=== PATIENT | male | born 1960 | race Caucasian/White ===

== ENCOUNTER 2018-11-27 10:55 | Inpatient (IN) ==
[2018-11-27] MEDS ORDERED: ASPIRIN PO STA (15:51)
[2018-11-27 16:44] LABS: HEMATOCRIT 41.5 % (42.0-52.0); HEMOGLOBIN 14.4 g/dL (14.0-18.0); MCH 32.4 PG (27-31); MCHC 34.7 g/dL (33-37); MCV 93.3 FL (81-99); MPV 10.4 FL (7.4-10.4); RBC 4.45 XMIL (4.7-6.1); WBC 6.53 X1000 (4.8-10.8)
[2018-11-27 16:56] LABS: AGAP 11; BUN 22 mg/dL (8-22); CALCIUM 9.8 mg/dL (8.8-10.2); CHLORIDE 98 mmol/L (98-107); COSMO 280; CREATININE 1.1 mg/dL (0.7-1.2); ESTIMATED GFR > 60; GLUCOSE 111 mg/dL (70-104); POTASSIUM 4.3 mmol/L (3.5-5.1); SODIUM 138 mmol/L (136-145); TCO2 29 mmol/L (25-35)
--- NOTE | 2018-11-27 20:01 | Diag Imaging Result Doc PS360 ---
EXAM: CT ANGIOGRAM AORTA W/RUNOFF INDICATION: RIght Ischemic LEG TECHNIQUE: This exam was performed using automated exposure control, adjustment of mA or kV according to patient size, and/or use of iterative reconstruction technique. Thin section axial images and 3-D MIPS were obtained. COMPARISON: None. FINDINGS: There is extensive aortoiliac atherosclerotic disease. There is no evidence of abdominal aortic aneurysm. There is a right common iliac artery stent that is occluded. Flow is reconstituted after the right iliac artery bifurcation. There is extensive atherosclerotic disease involving the external and internal iliac arteries. There is moderate stenosis throughout the course of the external iliac artery on the right. There is severe focal stenosis involving the left common iliac artery but it remains patent. There is severe atherosclerotic disease involving the internal and external iliac arteries on the left. There is intermittent moderate stenosis involving the external iliac artery on the left. There is fairly severe stenosis involving the celiac trunk that is best appreciated on sagittal reformats. It remains patent, however. There is mild atherosclerotic disease involving the SMA. It remains patent. There is mild atherosclerotic disease at the origins of the renal arteries. There is mild YADIRA atherosclerotic disease. It remains patent. Review of the ancillary structures of the abdomen and pelvis reveals no acute pathology. Right: There is extensive common femoral artery atherosclerotic disease with intermittent moderate to severe stenosis. There is severe atherosclerotic disease involving the superficial femoral artery with intermittent moderate and severe stenosis. There is moderate intermittent popliteal artery stenosis. There is patchy atherosclerotic disease involving the proximal anterior tibial artery but it remains patent. At the ankle, the anterior tibial artery becomes occluded. The posterior tibial artery remains patent throughout its course and provides runoff to the foot. The peroneal artery becomes occluded at the ankle. Left: There is extensive common femoral artery and superficial femoral artery atherosclerotic disease with intermittent moderate to severe stenosis. Some of the popliteal artery is obscured by metallic artifact from left knee arthroplasty. There is moderate stenosis involving the visualized portion. It does remain patent. There is patchy atherosclerotic disease involving the proximal anterior tibial artery. It remains patent and provides runoff to the foot. There is mild atherosclerotic disease at the origin of the posterior tibial artery. It remains patent and provides runoff to the foot. There is patchy atherosclerotic disease involving the proximal and mid peroneal artery. It is very diminutive distally and cannot be identified below the ankle. IMPRESSION: Extensive aortoiliac atherosclerotic disease and atherosclerotic disease involving both lower extremities that is worst on the right with one vessel runoff to the right foot and two-vessel runoff to the left foot. Electronically signed by Beto Lacy 11/27/2018 7:58 PM
[2018-11-27] MEDS: NEURONTIN PO SCH (20:19)
[2018-11-27] MEDS ORDERED: LIPITOR PO SCH (21:00)
[2018-11-27] MEDS: ULTRAM PO SCH ×3 (22:08→23:29)
--- NOTE | 2018-11-27 23:12 | HISTORY AND PHYSICAL ---
CHIEF COMPLAINT: Claudication symptoms, right leg worse than the left side, for the last few days. HISTORY OF PRESENT ILLNESS: He is a 58-year-old white gentleman with known history of atherosclerotic vascular disease, was seen in the emergency room 2 days ago with above symptoms. Patient was diagnosed right sciatica pain, sent home. He came to my office and the symptoms are consistent with claudication symptoms and decreased pulses. The patient had outpatient arterial flow studies, BRITTANY 0.5 on the right side, 0.6 on the left side. He has significant monophasic flow, poor downstream, very poor runoff. Very suspicious with inflow disease, mostly aortic PA disease. The pain is very symptomatic even to minimal walking. I do not see any change in the color of the feet. Basically, admitted to the hospital for ischemic leg on the right side, treatment, and followed by aorto runoff with CT. He was admitted for observation. PAST MEDICAL HISTORY: Coronary artery disease, type 2 diabetes, hypertension, gout, sleep apnea, hyperlipidemia. PAST SURGICAL HISTORY: Implantable AICD, bypass surgery with 4 stents, and he has a stent in the legs on the right side, heart valve replacement, quadruple bypass surgery, bilateral hip replacement, left knee replacement. MEDICATIONS: Allopurinol 100 mg daily, aspirin 325 daily, Lipitor 40 daily, baclofen 10 mg daily, Pletal 50 p.o. b.i.d., Cymbalta 60 daily, isosorbide 30 mg daily, metformin 500 daily, Zantac 150 daily, tramadol 50 as needed. ALLERGIES: Reported to tetanus. SOCIAL HISTORY: He is since 2000. Smoking 1 pack a day. No drug abuse. Living in [place]. He has been disabled. FAMILY HISTORY: Father of heart attack 42. Mother 79 years old, . HEALTH MAINTENANCE: In 02/2018 flu vaccine. Prevnar vaccine 2018. Pneumovax 23 in 2012. Last physical exam 02/2008. Colonoscopy 02/[address]. REVIEW OF SYSTEMS: HEENT: No headache. No vision problem. No earache. No sore throat. Neck: No goiter. No lymphadenopathy. No bruit. Cardiopulmonary: No chest pain, shortness of breath, PND, orthopnea. Gastrointestinal: No nausea, vomiting, abdominal pain. Genitourinary: No history of hesitancy, frequency, dysuria. Claudication symptoms in the right leg. Neurologic: No neurological symptoms or weakness. PREVIOUS WORKUP: Left heart catheterization was done by Dr. Anastacio Jha, mild rigidity, reduced LV systolic function with inferior wall dyskinesia, severe three-vessel coronary atherosclerosis, patent PENA graft to the LAD, occluded saphenous vein graft, and occluded saphenous vein to diagonal branch. INVESTIGATIONS: CBC: White cell count 6.5, hematocrit 41, platelets 226,000. SMA 7: Sodium 138, potassium 4.3, chloride 98, BUN 22, creatinine 1.1. Glucose 111. PHYSICAL EXAMINATION: VITAL SIGNS: Temperature is 98 degrees, pulse 72, blood pressure 132/60. 5 feet 9 inches, weight 241 pounds. HEENT: Atraumatic, normocephalic. Pupils equal, reactive to light. NECK: Supple. CHEST: Clear. HEART: Sounds are regular. ABDOMEN: Belly soft, nontender. RECTAL: Deferred. EXTREMITIES: Right foot decreased pulses. No signs of gangrene. No obvious deficits. IMAGING: CT runoff, findings are right common iliac artery stent that is occluded, poor downstream's. ASSESSMENT AND PLAN: 1. A 58-year-old white male with a known history of peripheral vascular disease, occluded right common iliac artery stent with a poor downstream, symptomatic on the right side. Plan is aspirin, Pletal. Vascular consult with Dr. Schneider. 2. Hyperlipidemia, on Lipitor. 3. Chronic pain, on Neurontin. 4. Coronary artery disease status post bypass surgery, multiple grafts were occluded. Continue on aspirin and isosorbide. 5. Chronic pain, on tramadol. Will discuss with Dr. Schneider in the morning. cc: Diallo Corcoran MD
[2018-11-27] MEDS: PLETAL PO SCH (23:29)
[2018-11-27] MEDS: ZANTAC PO SCH (23:30)
[2018-11-28] MEDS: NEURONTIN PO SCH ×3 (03:52→18:21)
[2018-11-28] MEDS: CYMBALTA PO SCH (09:56)
[2018-11-28] MEDS: PLETAL PO SCH ×2 (09:56→23:36)
[2018-11-28] MEDS: IMDUR PO SCH (09:56)
[2018-11-28] MEDS: ZANTAC PO SCH ×2 (09:56→23:36)
[2018-11-28] MEDS: ASPIRIN PO SCH (09:56)
[2018-11-28] MEDS: ZYLOPRIM PO SCH (09:56)
[2018-11-28] MEDS: ULTRAM PO SCH ×4 (09:57→23:35)
[2018-11-28] MEDS: PRINIVIL PO SCH (09:57)
--- NOTE | 2018-11-28 12:56 | EKG Report ---
Test Performed on : 11/28/2018 12:45:04 PM Test Reason : pre-op eval, CAD Blood Pressure : / mmHG Vent. Rate : 078 BPM Atrial Rate : 078 BPM P-R Int : 180 ms QRS Dur : 118 ms QT Int : 402 ms P-R-T Axes : 072 095 -45 degrees QTc Int : 458 ms Normal sinus rhythm. Possible Left atrial enlargement Rightward axis Possible Inferior infarct (cited on or before 02-DEC-2016) Cannot rule out Anterior infarct , age undetermined Abnormal ECG When compared with ECG of 02-DEC-2016 07:04, premature ventricular complexes. are no longer present Non-specific change in ST segment in Inferior leads T wave inversion more evident in Inferior leads Confirmed by Abad PRESSLEY, MJosé Miguel Mendes ([id number]) on 12/02/2018 9:30:20 PM
--- NOTE | 2018-11-28 13:17 | Diag Imaging Result Doc PS360 ---
EXAM: CHEST-PORTABLE 11/28/2018 HISTORY: pre-op eval TECHNIQUE: AP portable upright at 1304 COMMENT: There is no evidence of acute cardiac or pulmonary disease. There are no previous studies. IMPRESSION: No evidence of acute disease. Electronically signed by Ranjit Lo 11/28/2018 1:14 PM
--- NOTE | 2018-11-28 13:33 | GENERAL SURGERY CONSULTATION ---
DATE: 11/28/2018 CHIEF COMPLAINT: Right leg pain when walking. HISTORY: This is a 58-year-old smoker who has had a previous right iliac stent in [place] a few years ago. He reports over the past 2 weeks he developed increasing pain in the right leg. He was admitted by Dr. Corcoran yesterday. CT angiogram reveals right iliac occlusion, significant left iliac disease as well. He reportedly has a right AB index 0.5 on the right and left AB index of 0.6. PAST MEDICAL HISTORY: He has a history of coronary artery disease, and has had bypass surgery in the past in [place]. He is followed by Dr. Jha here. He also has type 2 diabetes, hypertension, sleep apnea, hyperlipidemia and gout. PAST SURGICAL HISTORY: Previous surgery includes coronary bypass, AICD placement, bilateral hip replacement and left knee replacement. MEDICATIONS: His medications at home include allopurinol, aspirin, Lipitor, baclofen, Pletal, Cymbalta, isosorbide dinitrate, metformin, Zantac and tramadol as needed. ALLERGY: Tetanus. FAMILY HISTORY: Pertinent for ischemic heart disease. SOCIAL HISTORY: He is . Smokes a pack a day. Denies drug use. He is currently disabled due to his medical problems. REVIEW OF SYSTEMS: It is as noted above. He denies any chest pain or shortness of breath. All of the subsystems are negative. PHYSICAL EXAMINATION: Vital Signs: He is afebrile. Heart rate 60, blood pressure 126/57. HEENT: No carotid bruits are heard. Trachea is midline. Lungs: Bilateral breath sounds are present. Heart: Regular rate and rhythm. Abdomen: Soft and nontender. Chest: He does have a palpable pacemaker in the left upper anterior chest. Extremities: He has a faint left femoral pulse. No palpable right femoral pulse. I cannot palpate pedal pulses. He has evidence of a right greater saphenous vein harvest. There is no peripheral edema. Neuro: He is awake and alert. LABORATORY DATA: Hemoglobin 14.4 hematocrit 41.5 BUN 22, creatinine 1.1. ASSESSMENT: Bilateral claudication worse on the right. He has a right iliac occlusion, significant left iliac disease. I think he would be improved with a left iliac intervention, possible stent and femoral-femoral bypass. I have discussed this with him, the benefits and risks. If he is cleared by cardiology then we can proceed while hospitalized. cc: MD Diallo Chong MD
--- NOTE | 2018-11-28 14:22 | CARDIOLOGY CONSULTATION ---
DATE: 11/28/2018 CHIEF COMPLAINT: Patient with claudication type symptoms, apparent abnormal ABIs at PCP's office. HISTORY OF PRESENT ILLNESS: Mr. Rios is a 58-year-old, white gentleman with a history of coronary artery disease and peripheral artery disease who apparently had an ER visit for right hip pain and was sent home. He subsequently presented to his PCP's office and had a 0.5 BRITTANY on the right and 0.6 on the left. He was admitted for further evaluation. The patient seems to not have any chest pain. He had a PCI done 2 years ago. He is not aware of any recent changes in his chest pain but it does not sound like he participates in 4 METS of activity at this time. His. PAST MEDICAL HISTORY: Significant for: 1. Coronary artery disease with last cardiac catheterization performed in November of 2016. At that time, the patient's EF was 40% with dyskinesis of the basal to mid inferior wall. The left main was free of significant disease. The left anterior descending had 60-70% stenosis near its ostium and was occluded after the origin of a septal college intern in the first diagonal. The circumflex was occluded proximally. The first obtuse marginal had a 50% stenosis proximally. The right coronary artery was occluded proximally. The YADIRA to the LAD was widely patent and inserts into the mid vessel of the LAD. The LAD sends collaterals via a right ventricular branch to the right coronary artery. Vein graft to a marginal was chronically occluded. Vein graft to a diagonal is occluded. This was done to evaluate a nuclear scan performed in October of 2016 demonstrating severe fixed defects in the basal to mid inferolateral wall with moderate reversibility in the apical anterior wall and mild reversibility in the apical lateral wall. EF on that study was 39%. 2. Hypertension. 3. Hyperlipidemia. 4. Diabetes. 5. Peripheral vascular disease with previous stents. 6. Sleep apnea. SOCIAL HISTORY: He is . Smokes 1 pack a day. Lives in [place]. FAMILY HISTORY: Father of a heart attack at 42. REVIEW OF SYSTEMS: A 10 system review of systems is negative except for those things mentioned in the HPI. PHYSICAL EXAMINATION: Afebrile. Heart rate 63, blood pressure 138/53. General: He is in no acute distress. HEENT: Oropharynx is moist. Poor dentition. Eye examination shows pink conjunctivae and white sclerae. Neck: Examination shows no obvious thyromegaly or thyroid tenderness. Cardiovascular: He sounds to be in a regular rate and rhythm. I do not hear any obvious murmurs. He has no S3. He has no lower extremity edema. Chest: Examination is clear bilaterally. He has no increased work of breathing. Abdomen: Soft, nontender, nondistended. He has no obvious organomegaly. Skin: Examination is warm and dry throughout without any rashes. Neurological: He is moving all extremities well. He has no lateralizing deficits. PERTINENT DATA: He had an EKG performed, demonstrating sinus rhythm. He has an incomplete, nonspecific intraventricular conduction delay with T-wave inversions noted somewhat diffusely, inferior Q-waves. His aorta with runoff CTA was reviewed. Lab data shows a white count of 6.5, hematocrit 41, platelet count is 226,000. His sodium is 138, potassium is 4.3, BUN 22, creatinine is 1.1. His proBNP was 51. ASSESSMENT: Mr. Rios is a 58-year-old gentleman with severe peripheral vascular disease who was potentially undergoing vascular surgery on Monday. PLAN: He has a high perioperative cardiac risk secondary to his history of bypass, congestive heart failure, and high risk vascular surgery. We will proceed with myocardial perfusion imaging if he has not had any evaluations done in the last couple of years and he is minimally active, and continues to smoke. We will try to initiate him on a low dose of beta-tanna in the form of Coreg 3.125 b.i.d. I have escalated his atorvastatin to 80 mg at bedtime. We will check lipids in the morning. cc: MD Diallo Brenner MD
--- NOTE | 2018-11-28 21:06 | PROGRESS NOTE ---
DATE: 11/28/2018 SUBJECTIVE: I did review the CT runoff with the radiologist, spoke to Dr. Schneider and he has significant iliac stent occluded with poor downstream on the right side. Left main is also diseased. He continues to smoke. REVIEW OF SYSTEMS: None reported on exam. OBJECTIVE: Temperature is 98 degrees. Vitals are stable.HEENT: Within normal limits. Neck: Supple. Chest: Clear to auscultation. Heart: Sounds are regular. Abdomen: Belly is soft, nontender. Neurologic: No neurological deficits. INVESTIGATIONS: CBC SMA 7, cardiac enzymes, proBNP were normal. Chest x-ray reported AICD. No evidence of acute disease. ASSESSMENT AND PLAN: Peripheral arterial disease, symptomatic on the right side and Dr. Schneider is planning to open up on the left side and then followed by a femoral-femoral bypass graft and he wants the preoperative evaluation by distance education director. I spoke to Dr. Layton for clearance and Dr. Layton is going to do a stress test and lipid panel in the morning. Chest x-ray was stable. In the meantime, continue on aspirin, high dose of Lipitor, Coreg, and Pletal and Imdur. Reconcile home medications. I appreciated consultants Dr. Layton and Dr. Schneider. LEVEL OF DOCUMENTATION: 25 minutes. cc: Diallo Corcoran MD
[2018-11-28] MEDS: COREG PO SCH (23:35)
[2018-11-28] MEDS: LIPITOR PO SCH (23:36)
--- NOTE | 2018-11-29 00:02 | ECHO REPORT ---
ORDER DATE: 11/28/2018 MEASUREMENTS: Septal thickness 1.1, left ventricular internal diameter in diastole 5.6, posterior wall thickness 1.1. Left atrium 3.8. SUMMARY: 1. Technically difficult study due to limited acoustic window quality. Intravenous echocontrast agent Optison was utilized to enhance endocardial definition. 2. Mild sclerosis of trileaflet aortic valve demonstrated, with normal aortic valve opening evident. Peak gradient across the aortic valve is less than 10 mmHg. Mitral and tricuspid valves are without evidence of structural abnormality, while the pulmonic valve is not well demonstrated. There is mild mitral regurgitation. The aortic root is normal in size. 3. Normal left ventricular dimensions suggested. Estimated left ventricular ejection fraction appears to be at least 55%. No regional wall motion abnormalities are evident. The left atrium is normal in size. The right atrium and right ventricle are normal in size, with grossly preserved right ventricular systolic function. Pacemaker lead is evident in the right ventricle. 4. No pericardial effusion. 5. Appearance of inferior vena cava suggests normal central venous pressure. CONCLUSIONS: 1. Technically difficult study. 2. Very mild aortic valve sclerosis without stenosis. 3. Mild mitral regurgitation. 4. Estimated left ventricular ejection fraction at least 55%, without regional wall motion abnormality evident. cc: MD Leydi Vang PA Jagan Reddy, MD
[2018-11-29] MEDS: NEURONTIN PO SCH ×2 (04:26→16:25)
--- NOTE | 2018-11-29 07:31 | EKG Report ---
Test Performed on : 11/29/2018 06:52:46 AM Test Reason : CP Blood Pressure : / mmHG Vent. Rate : 066 BPM Atrial Rate : 066 BPM P-R Int : 192 ms QRS Dur : 116 ms QT Int : 428 ms P-R-T Axes : 050 058 121 degrees QTc Int : 448 ms Normal sinus rhythm. Possible Left atrial enlargement Possible Inferior infarct (cited on or before 02-DEC-2016) T wave abnormality, consider lateral ischemia Abnormal ECG When compared with ECG of 28-NOV-2018 12:45, (Unconfirmed) T wave inversion no longer evident in Inferior leads Confirmed by Leo Melgoza MD ([id number]) on 12/02/2018 9:31:08 PM
[2018-11-29 07:42] LABS: CHOLESTEROL 149 mg/dL (0-200); HDL 31 mg/dL (35-55); LDL 69 mg/dL; TRIGLYCERIDES 245 mg/dL (39-160); VLDL 49 mg/dL
[2018-11-29] MEDS: CYMBALTA PO SCH (10:05)
[2018-11-29] MEDS: ULTRAM PO SCH ×4 (10:05→23:04)
[2018-11-29] MEDS: ZYLOPRIM PO SCH (10:06)
[2018-11-29] MEDS: ZANTAC PO SCH ×2 (10:06→23:04)
[2018-11-29] MEDS: PRINIVIL PO SCH (10:06)
[2018-11-29] MEDS: COREG PO SCH ×2 (10:06→23:05)
[2018-11-29] MEDS: PLETAL PO SCH ×2 (10:06→23:04)
[2018-11-29] MEDS: ASPIRIN PO SCH (10:06)
[2018-11-29] MEDS: IMDUR PO SCH (10:07)
--- NOTE | 2018-11-29 10:31 | GENERAL SURGERY PROGRESS NOTE ---
DATE: 11/29/2018 Mr. Rios is doing the same. His exam is the same. We are awaiting his nuclear medicine study today. If he is cleared from the fast food cashier's point of view, will plan to proceed tomorrow with a left iliac stent and femoral-femoral bypass. We discussed the benefits and risks. He understands and agrees to proceed. He also understands that we might have to delay the procedure based on the fast food cashier's recommendation. We discussed with his , and answered her questions as well. cc: MD Diallo Chong MD
[2018-11-29] MEDS ORDERED: LEXISCAN ONE (11:47)
[2018-11-29] MEDS ORDERED: BACTROBAN OINTMENT TOP ONE (14:35)
--- NOTE | 2018-11-29 14:40 | Diag Imaging Result Document ---
PROCEDURE NAME: MYOCARDIAL PERF SCAN, STR/REST - 11/29/2018 INDICATION: History of coronary artery disease, preoperative evaluation for vascular surgery. PROCEDURES PERFORMED: 1. Lexiscan stress. 2. One day stress rest myocardial perfusion imaging. PROCEDURE IN DETAIL: Mr. Rios was brought to the nuclear laboratory and had a resting study with injection of 14.4 mCi of technetium-99m sestamibi with the usual imaging protocol utilized. Subsequently, he was brought back and had a Lexiscan stress. At peak stress, he was injected with 42.1 mCi of technetium-99m sestamibi with the usual imaging protocol utilized. FINDINGS: Lexiscan Stress Results: 1. Baseline EKG shows atrial paced rhythm. Some evidence of inferior Q-waves, PVCs, and T-wave inversions noted laterally. 2. Lexiscan stress did not demonstrate any clear evidence of ischemic related EKG changes or significant arrhythmias. Occasional PVCs were identified. Perfusion Imaging Results: 1. No evidence of abnormal extracardiac uptake. 2. TID ratio was 0.88. 3. Perfusion imaging demonstrates a large size, severe intensity, fixed defect in the mid and basal inferolateral segments. This is suggestive of infarct. There is a small mixed defect as well in the mid anterior wall with a very slight amount of reversibility. 4. There is a mildly reduced ejection fraction of 48%. The end-diastolic volume is 131 and end- systolic volume 68. Hypokinesis of the inferolateral wall was noted. cc: Jose Layton MD
--- NOTE | 2018-11-29 17:36 | CARDIOLOGY PROGRESS NOTE ---
DATE: 11/29/2018 SUBJECTIVE: Mr. Rios has no pain complaints today. PHYSICAL EXAMINATION: Afebrile. Heart rate 73, blood pressure 106/57.General: No acute distress. Cardiovascular: He is in a regular rate and rhythm. He has no murmurs. He has no S3. He has no lower extremity edema. Chest: Clear bilaterally. No increased work of breathing. Abdomen: Soft, nontender. PERTINENT DATA: Perfusion imaging demonstrates evidence of a scar in the inferolateral wall, as well as a mixed defect in the anterior wall with EF of 48%. His laboratory data demonstrates a LDL of 69, HDL was 31. ASSESSMENT: Mr. Rios is a 58-year-old gentleman who is here for I believe aortobifemoral bypass and a possible iliac stent. PLAN: We will continue him on the beta-tanna. His nuclear stress test seemed consistent with previous testing that was done 2017 that was investigated with a cardiac catheterization. At this time, he is not having any sort of ischemic type pains. He is on aspirin, high-intensity statin, a beta tanna as well as an RAO inhibitor. I do not have any further recommendations. Please contact us if we can be of further assistance with this patient. cc: MD Diallo Brenner MD
--- NOTE | 2018-11-29 21:10 | PROGRESS NOTE ---
DATE: 11/29/2018 SUBJECTIVE: Patient is going for preop evaluation by Dr. Layton. I appreciated his input. He is pain free. He is more symptomatic with right leg claudication. Once he clears for surgery, Dr. Schneider is going to proceed. REVIEW OF SYSTEMS: None reported. OBJECTIVE: Vital Signs: Stable. HEENT: Within normal limits. Neck: Supple. Chest: Clear. Heart: Sounds are regular. Abdomen: Belly is soft, nontender. Neurologic: No neurological deficits. LABORATORY DATA: Cholesterol 149, triglycerides 245, LDL 69, HDL 31. ProBNP is normal. Chest x- ray: No evidence of acute disease. AICD on the left side. Myocardial perfusion scan reported hypokinesis inferolateral wall, 48% ejection fraction. No significant reversible ischemia. ASSESSMENT AND PLAN: 1. Right leg claudication, due to right common iliac artery stent closed. Dr. Schneider is planning to do left iliac stent and angioplasty followed by femoral-femoral bypass. 2. Patient has been cleared by Dr. Layton. 3. Diabetes, off metformin. Sliding scale with insulin coverage. Continue present treatment. 4. I appreciated Dr. Layton and Dr. Schneider consultants LEVEL OF DOCUMENTATION: 25 minutes. cc: Diallo Corcoran MD
[2018-11-29] MEDS: LIPITOR PO SCH (23:04)
[2018-11-30] MEDS: NEURONTIN PO SCH ×2 (05:28→15:53)
[2018-11-30] MEDS: COREG PO SCH ×3 (05:57→22:46)
[2018-11-30] MEDS ORDERED: HEPARIN ONE ×2 (06:40)
[2018-11-30] MEDS ORDERED: NS 2,000 ML ONE (06:40)
[2018-11-30] MEDS ORDERED: SENSORCAINE 0.25%/EPI 1:200,000 ONE (06:40)
[2018-11-30] MEDS ORDERED: KEFZOL ONE (06:40)
[2018-11-30] MEDS ORDERED: ROBINUL ONE ×2 (06:41→08:54)
[2018-11-30] MEDS ORDERED: ZOFRAN ONE (06:41)
[2018-11-30] MEDS ORDERED: XYLOCAINE-MPF 2% ONE ×2 (06:41→09:09)
[2018-11-30] MEDS ORDERED: DECADRON ONE (06:41)
[2018-11-30] MEDS ORDERED: DIPRIVAN 1% ONE ×2 (06:42→07:16)
[2018-11-30] MEDS ORDERED: FENTANYL ONE (06:42)
[2018-11-30] MEDS ORDERED: QUELICIN (DOSE) ONE (06:45)
[2018-11-30] MEDS ORDERED: SODIUM CHLORIDE 0.9% 10 ML ONE (06:46)
[2018-11-30] MEDS ORDERED: NORCURON ONE (06:46)
[2018-11-30] MEDS ORDERED: KEFZOL 1 GM/D5W 1 GM/50 ML IVPB ONE (06:58)
[2018-11-30] MEDS ORDERED: ALBUMIN 25% ONE (07:32)
[2018-11-30] MEDS ORDERED: OFIRMEV 1000 MG/ISOTONIC SOLN 1,000 MG/100 ML BOTTLE ONE (08:49)
[2018-11-30] MEDS ORDERED: NEOSTIGMINE ONE (08:55)
--- NOTE | 2018-11-30 09:56 | OPERATIVE NOTE ---
PROCEDURE DATE : 11/30/2018 NAME OF THE PROCEDURE: 1. Open left common iliac balloon angioplasty and stent. 2. Femoral-femoral bypass. SURGEON: Silvano Schneider MD. ATTENDANT COIN OPERATED LAUNDRY: Ramos Nelson RN. PREOPERATIVE DIAGNOSIS: Right iliac occlusion with claudication. POSTOPERATIVE DIAGNOSIS: 1. Right iliac occlusion with claudication. 2. Left common iliac stenosis. DESCRIPTION OF PROCEDURE: Satisfactory general endotracheal anesthesia was achieved. The abdomen and groins were prepped and draped in a sterile fashion. We made a vertical incision in the left groin dissected down to the common femoral. As it came under the inguinal ligament, we surrounded with an umbilical tape. We dissected out the branch vessels, surrounded them with large vessel loops. The artery was quite diseased but we found a spot on the anterior aspect that we could puncture, which we did and passed a wire followed by a 7 Australian sheath, 8000 units of heparin were given. A retrograde arteriogram shows a common iliac stenosis from the bifurcation down to the bifurcation of the common iliac, which measured about 7-8 cm. The heparin had circulated adequately. We chose a 7 x 10 balloon and ballooned the common iliac for 1 minute to 10 atmospheres. We then chose an 8 x 80 S.M.A.R.T. CONTROL stent and deployed it down to the bifurcation of the common iliac. Completion arteriogram showed resolution of the stenosis. I did not see any evidence of dissection. I saw no reason to do a post balloon or post stent dilatation as the lumen appeared normal diameter. We then made a vertical incision in the right groin, dissected down to the common femoral surrounded with an umbilical tape dissected out the branch vessels surrounding the vessel loops. We then obtained a 10 mm Hemashield Gold graft and used a Dosick tunneler to tunnel it from 1 groin to the other groin. We then occluded flow in the left common femoral using a clamp and the vessel loops on the branch vessels. We removed the 7 Australian sheath, extended the hole in the artery with the Gomez scissors. It was an 11 mm incision so we constructed the anastomosis with a 5-0 Prolene upon completion of the anastomosis, we clamped off the graft and allowed flow. One additional stitch was required for hemostasis of the anastomosis. We then turned our attention to the right groin. We then incised the artery on the anterior aspect, again the artery was quite diseased but we found an adequate soft spot to make an incision, extended with the Gomez scissors coming down onto the superficial femoral. We had back bleeding from the superficial femoral as well as deep femoral vessels. We then cut the graft to match the arteriotomy and constructed this anastomosis with a 5-0 Prolene stitch. As we neared completion of the anastomosis, we back bled the branch vessels, passed 3 probes down each one, and then flushed the graft, no clots were seen. We then finished the anastomosis and flow was established. Good hemostasis was present at both anastomoses. Flow was present on both sides. We then irrigated out both wounds with Kefzol impregnated saline and then closed the subcutaneous tissue in 2 layers with 3-0 Polysorb interrupted Polysorb stitches. The skin was then closed with a 4-0 Polysorb subcuticular stitch. Sterile dressings were applied. He tolerated it well. He was sent to the recovery room in satisfactory condition. Contrast used was 40 mL. cc: MD Diallo Chong MD
[2018-11-30] MEDS: DILAUDID ONE ×2 (10:15→10:18)
[2018-11-30] MEDS ORDERED: HUMULIN R SUBQ SCH (11:00)
[2018-11-30] MEDS: PLETAL PO SCH ×2 (11:48→22:45)
[2018-11-30] MEDS: ULTRAM PO SCH ×4 (11:48→22:46)
[2018-11-30] MEDS: IMDUR PO SCH (11:49)
[2018-11-30] MEDS: ZANTAC PO SCH ×2 (11:49→22:45)
[2018-11-30] MEDS: ZYLOPRIM PO SCH (11:49)
[2018-11-30] MEDS: ASPIRIN PO SCH (11:49)
[2018-11-30] MEDS: PRINIVIL PO SCH (11:50)
[2018-11-30] MEDS: CYMBALTA PO SCH (11:50)
[2018-11-30] MEDS: NS 1,000 ML IV SCH (11:51)
[2018-11-30 12:10] LABS: URINE SOURCE CATH
[2018-11-30 12:23] LABS: BILIRUBIN URINE NEGATIVE (NEGATIVE); BLOOD URINE MODERATE (NEGATIVE); COLOR YELLOW; GLUCOSE URINE 70 mg/dL (NEGATIVE); KETONE URINE NEGATIVE (NEGATIVE); LEUKOCYTES URINE NEGATIVE (NEGATIVE); NITRITE URINE NEGATIVE (NEGATIVE); PH URINE 5.5; PROTEIN URINE NEGATIVE (NEGATIVE); SP GRAVITY URINE 1.033; TURBIDITY URINE CLEAR (CLEAR); UROBILINOGEN URINE NORMAL (NORMAL)
[2018-11-30 12:26] LABS: UR EPITHELIAL CELLS <10 /HPF (<10); URINE BACTERIA NEGATIVE /HPF; URINE WBC <10 /HPF (<10)
[2018-11-30] MEDS: KEFZOL 1 GM/D5W 1 GM/50 ML IVPB IV SCH ×2 (15:53→22:45)
[2018-11-30] MEDS: HUMULIN R SUBQ SCH ×2 (15:53→22:47)
--- NOTE | 2018-11-30 19:43 | GENERAL SURGERY PROGRESS NOTE ---
DATE: 11/30/2018 TIME: 5:20 p.m. Mr. Rios is doing generally well. His pain relief is adequate. His bandages are dry. His feet are warm. Hemodynamics are satisfactory. We will check his labs in the morning. cc: MD Diallo Chong MD
[2018-11-30] MEDS: LIPITOR PO SCH (22:45)
[2018-11-30] MEDS: DILAUDID IV PRN (22:52)
--- NOTE | 2018-12-01 00:05 | PROGRESS NOTE ---
DATE: 11/30/2018 SUBJECTIVE: Blood sugars running a little bit high off metformin. I appreciated Dr. Schneider, he performed this morning left common iliac artery angioplasty and stent, followed by femorofemoral bypass. Patient is feeling better. I did see the patient after surgery, no complaints. OBJECTIVE: Vital signs: On examination, temp is 97 degrees, pulse 92, blood pressure 103/56, O2 saturation 94% on room air. HEENT: Within normal limits. Chest: Clear. Cardiovascular: Heart sounds are regular. Abdomen: Belly is soft, nontender. Blood sugars running a little bit high. ASSESSMENT AND PLAN: 1. Postoperative day 1 with left common iliac angioplasty, stent, followed by femorofemoral bypass. 2. Diabetes. Follow up on insulin sliding scale with insulin coverage. Repeat the labs in the morning. 3. Ongoing tobacco abuse. Quit smoking. 4. Ischemic heart disease status post bypass surgery, automatic implantable cardioverter defibrillator. Continue the present treatment. Appreciated Dr. Schneider. LEVEL OF DOCUMENTATION: 25 minutes. cc: Diallo Corcoran MD
[2018-12-01] MEDS: NEURONTIN PO SCH ×2 (04:00→16:36)
[2018-12-01 06:22] LABS: BASO# 0.01 X1000 (0.0-0.2); BASO% 0.1 % (0.0-0.8); EOS# 0.01 X1000 (0.0-0.7); EOS% 0.1 % (0.0-10.0); HEMATOCRIT 35.5 % (42.0-52.0); HEMOGLOBIN 12.3 g/dL (14.0-18.0); LYMPH# 1.57 X1000 (1.2-3.4); LYMPH% 13.2 % (20.5-51.1); MCH 32.7 PG (27-31); MCHC 34.6 g/dL (33-37); MCV 94.4 FL (81-99); MONO# 0.93 X1000 (0.11-0.59); MONO% 7.8 % (1.7-9.3); MPV 10.1 FL (7.4-10.4); NEUT# 9.36 X1000 (1.4-6.5); NEUT% 78.8 % (42.2-75.2); PLT 210 X1000 (130-400); RBC 3.76 XMIL (4.7-6.1); RDW 12.6 % (11.5-14.5); WBC 11.88 X1000 (4.8-10.8)
[2018-12-01] MEDS: HUMULIN R SUBQ SCH ×4 (06:56→22:54)
[2018-12-01 07:11] LABS: AGAP 13; BUN 17 mg/dL (8-22); CALCIUM 8.1 mg/dL (8.8-10.2); CHLORIDE 101 mmol/L (98-107); COSMO 281; CREATININE 0.8 mg/dL (0.7-1.2); ESTIMATED GFR > 60; GLUCOSE 198 mg/dL (70-104); POTASSIUM 3.8 mmol/L (3.5-5.1); SODIUM 137 mmol/L (136-145); TCO2 23 mmol/L (25-35)
[2018-12-01] MEDS: COREG PO SCH ×2 (09:36→22:45)
[2018-12-01] MEDS: ZYLOPRIM PO SCH (09:36)
[2018-12-01] MEDS: IMDUR PO SCH (09:36)
[2018-12-01] MEDS: ZANTAC PO SCH ×2 (09:36→22:35)
[2018-12-01] MEDS: PRINIVIL PO SCH (09:36)
[2018-12-01] MEDS: PLETAL PO SCH ×2 (09:37→22:35)
[2018-12-01] MEDS: ULTRAM PO SCH ×4 (09:37→22:42)
[2018-12-01] MEDS: ASPIRIN PO SCH (09:37)
[2018-12-01] MEDS: CYMBALTA PO SCH (09:37)
--- NOTE | 2018-12-01 10:07 | GENERAL SURGERY PROGRESS NOTE ---
DATE: 12/01/2018 SUBJECTIVE: He is afebrile. Heart rate 65, blood pressure 113/52. His feet are warm. His bandages are dry. He has a palpable graft pulse. Hemoglobin 12.3, hematocrit 35.5. PLAN: The plan will be to remove his Villa. He can get up and walk. Certainly from the surgical perspective, he could be discharged. If so, he should return to see me in the office in a week. cc: MD Diallo Chong MD
[2018-12-01] MEDS: NS 1,000 ML IV SCH (13:06)
[2018-12-01] MEDS: LIPITOR PO SCH (22:35)
[2018-12-01] MEDS: NORCO-10 PO PRN (22:42)
[2018-12-01] MEDS: DILAUDID IV PRN (22:54)
[2018-12-02] MEDS: NEURONTIN PO SCH ×2 (03:50→15:37)
[2018-12-02] MEDS: NS 1,000 ML IV SCH ×3 (05:44→17:27)
[2018-12-02] MEDS: NORCO-10 PO PRN (05:48)
[2018-12-02] MEDS: HUMULIN R SUBQ SCH ×4 (06:57→23:11)
[2018-12-02] MEDS: ZANTAC PO SCH ×2 (08:32→21:30)
[2018-12-02] MEDS: CYMBALTA PO SCH (08:32)
[2018-12-02] MEDS: ULTRAM PO SCH ×4 (08:32→21:30)
[2018-12-02] MEDS: IMDUR PO SCH (08:32)
[2018-12-02] MEDS: ASPIRIN PO SCH (08:32)
[2018-12-02] MEDS: PLETAL PO SCH ×2 (08:32→21:30)
[2018-12-02] MEDS: ZYLOPRIM PO SCH (08:33)
[2018-12-02] MEDS: COREG PO SCH ×2 (08:33→21:30)
[2018-12-02] MEDS: PRINIVIL PO SCH (08:33)
--- NOTE | 2018-12-02 08:45 | GENERAL SURGERY PROGRESS NOTE ---
DATE: 12/02/2018 He is now postop day 2 from his femorofemoral bypass and left iliac stent. His wounds look fine. His feet are warm. He has walked enough to test his flow and his right leg is holding up much better. I do think I feel maybe a 1+ posterior tibial pulse in the right foot. His left foot is normal as well. It will be fine with me whenever he is discharged. I have discussed wound care. He will return to see me in the office in 2 weeks, when he returns from [place]. I discussed with him what to be concerned about and when to call. cc: MD Diallo Chong MD
--- NOTE | 2018-12-02 11:39 | PROGRESS NOTE ---
DATE: 12/02/2018 Mr. Rios has some pain over his incision sites. The legs look better. His vital signs are stable. He wants to continue and wait until tomorrow before he can go home. Physical exam otherwise is unchanged. -4 cc: MD Diallo Hagen MD
[2018-12-02] MEDS: LIPITOR PO SCH (21:30)
[2018-12-03] MEDS: NORCO-10 PO PRN ×2 (01:45→09:34)
[2018-12-03] MEDS: NEURONTIN PO SCH (03:06)
--- NOTE | 2018-12-03 05:57 | PROGRESS NOTE ---
DATE: 12/01/2018 Mr. Rios is doing fairly well. His vital signs are stable. He says he is a little bit sore in the surgical site, otherwise he is feeling better. I did feel the pulse in the feet. He is status post common iliac angioplasty followed by stent and femoral-femoral bypass. His CBC shows white count of 11.88, hemoglobin 12.3, hematocrit 35.5. Electrolytes, BUN and creatinine are within normal limits. Blood sugar is 184. He is on insulin. Overall condition is stable. We will continue with the current management. cc: MD Diallo Hagen MD
[2018-12-03] MEDS: HUMULIN R SUBQ SCH (06:42)
[2018-12-03 08:06] VITALS: BP 131/63
[2018-12-03] MEDS: NS 1,000 ML IV SCH (08:07)
[2018-12-03] MEDS: PRINIVIL PO SCH (09:32)
[2018-12-03] MEDS: PLETAL PO SCH (09:32)
[2018-12-03] MEDS: ULTRAM PO SCH (09:33)
[2018-12-03] MEDS: IMDUR PO SCH (09:33)
[2018-12-03] MEDS: COREG PO SCH (09:33)
[2018-12-03] MEDS: ZANTAC PO SCH (09:33)
[2018-12-03] MEDS: CYMBALTA PO SCH (09:33)
[2018-12-03] MEDS: ASPIRIN PO SCH (09:33)
[2018-12-03] MEDS: ZYLOPRIM PO SCH (09:34)
--- NOTE | 2018-12-03 22:37 | DISCHARGE SUMMARY ---
ADMISSION DATE: 11/27/2018 DISCHARGE DATE: 12/03/2018 DISCHARGING DIAGNOSIS: Claudication of right leg due to complete occlusion of right common iliac artery stent. SECONDARY DIAGNOSES: 1. Coronary artery disease status post bypass surgery with multiple stents and implantable automatic implantable cardioverter-defibrillator. 2. Type 2 diabetes. 3. Hypertension. 4. Gout. 5. Sleep apnea. 6. Hyperlipidemia. 7. Tobacco abuse. CONSULTATIONS: 1. Silvano Schneider MD 2. Dr. Layton. PROCEDURES: 1. Echocardiography report: Findings are technically difficult study. Mild aortic valve sclerosis without stenosis. Estimated EF 55%. 2. Myocardial perfusion scan reported no evidence of significant reversible defects, hypokinesis of inferolateral dang. 3. Open left common iliac balloon angioplasty and stent, femoral-femoral bypass surgery. BRIEF HISTORY: Please see the H and P that was done on 11/27/2018. In brief he is a 58-year-old white gentleman with underlying medical problems who came to my office with claudication symptoms in the right leg, decreased pulses. He had an outpatient Doppler, which showed inflow disease with a poor downstream, BRITTANY 0.5 on the right, 0.6 on the left side. Flow was monophasic. He had bilateral iliac stents, and the right was stopped up. The findings were corroborated by CT aortogram with runoff. Dr. Schneider was consulted. He recommended a femoral- femoral bypass after the open left common iliac artery with angioplasty and stent. Since he has significant cardiac issue, he wants preop clearance for which Dr. Layton was consulted. Metformin was stopped due to diet. Blood sugars were controlled on sliding scale with insulin coverage. Dr. Schneider performed the surgery. Postoperative course was uneventful. He had good pulses. Symptoms are much improved. He was advised medical management to quit smoking. LABORATORY DATA: White cell count 11, hematocrit 35, platelets 210,000. Sodium 137, potassium 3.8, chloride 101, BUN 17, creatinine 0.8, glucose 198, triglycerides 245, cholesterol 145, LDL 69. Urinalysis is clear. DISCHARGE INSTRUCTIONS: 1. Isosorbide 30 mg daily, Duloxetine 60 daily, aspirin 325 daily, Lasix 20 daily, Coreg 12.5 p.o. b.i.d., Zantac 150 p.o. b.i.d., lisinopril 10 mg daily, allopurinol 100 daily, multivitamin 1 tablet daily, fish oil 1 tablet p.o. b.i.d., Lipitor 40 mg daily, tramadol 50 p.o. b.i.d., metformin 500 daily, Diclofenac gel as needed. 2. Follow up in my office this week as well as Dr. Schneider, and he needs to continue secondary prevention, quit smoking, A1c below 7, LDL less than 70, and we will follow up. cc: Diallo Corcoran MD MTDD
== END 2018-12-03 10:06 | disposition home or self-care (01) | DRG 253 ==
LOC: DIRADM 10:55 → 4N 15:30
PROVIDERS: ADMIT Internal Medicine; ATTEND Internal Medicine